=== PATIENT | male | born 1985 | race Caucasian/White ===

== ENCOUNTER 2019-04-19 21:45 | Emergency (ER) | payer SELFPAY ==
[~2019-04-19] VITALS: Ht 172.7 cm; Wt 56.7 kg
[2019-04-19 21:49] VITALS: BP 112/82
[2019-04-19 22:53] VITALS: BP 110/80
== END 2019-04-19 22:52 ==
LOC: MED 21:45
DX: F10.129 Alcohol abuse with intoxication, unspecified (principal); Z02.89 Encounter for other administrative examinations; V89.2XXA Person injured in unspecified motor-vehicle accident, traffic, initial encounter; Y93.89 Activity, other specified; Y92.89 Other specified places as the place of occurrence of the external cause; Y99.8 Other external cause status
CPT/HCPCS: 99283